=== PATIENT | male | born 1950 | race Caucasian/White ===

== ENCOUNTER → 2018-11-12 | Outpatient (CLI) | payer BC, OTHER ==
[~2018-11-12] VITALS: Ht 175.3 cm; Wt 90.7 kg
[~2018-11-12] MED LIST: IBUPROFEN 200200 M1 PO; MOBIC7.5 MG PO; NABUMETONE 500500 M1 PO; PREDNISONE 20 M20 MG PO
[2018-11-12 13:53] VITALS: BP 115/69
--- NOTE | 2018-11-12 14:18 | NUR ---
Pain Clinic Assessment: 1. History of Osteoarthritis: Not Applicable History of Rheumatoid Arthritis: Not Applicable 2. Height: 5 ft. 9 in. 175.3 cm. Weight: 200.0 lb. oz. 90.720 kg. Patient's BMI: 29.5 3. Vital Signs: BP: 115/69 Pulse: 68 Resp: 16 Temp: 02 Sat: 97 ECG Mon: 4. Pain Intensity: 6 5. Fall Risk: Dizziness: N Needs help standing or walking: N Fallen in the last 3 months: N Fall risk comments: 6. Patient on Blood Thinner: None 7. History of Hypertension: N 8. Opioid Therapy greater than 6 weeks: N Opiate Contract Signed: 9. Risk Assessment Tool Provided: low-0 10. Functional Assessment Tool: 11. Recreational Drug Use: Past greater than 3 mos Drug Type: Tobacco Use: Former Smoker Tobacco Type: Amount or Packs/day: How Many Years: Alcohol Use: No Frequency: Quant:
--- NOTE | 2018-11-19 07:42 | HPC ---
[facility] [address] [place] [address] PAIN MANAGEMENT CONSULTATION Name: JAMESCONSTANTINO Brit [id number] Admission: 11/12/18 ������������������ Attend Phys: Harsha Antonio DO Discharge: ������������������ Date of : 54 Report #: [id number] THIS REPORT FOR: //name// CC: Dr. Cano [facility] physician/PCP Harsha Antonio DATE OF SERVICE: 11/12/2018 CHIEF COMPLAINT: Neck pain, left upper extremity pain with paresthesias. HISTORY OF PRESENT ILLNESS: As you know, the patient is a 68-year-old male who reports acute onset of neck pain, left upper extremity pain and paresthesias that began on 08/25/2018. He has been evaluated not only by his primary care physician, but has sought evaluation through Orthopedic Surgery in regards to his left neck and shoulder pain. He has been advised that his symptoms are likely related to his cervical pathology. He was given a diagnosis of impingement syndrome of the left shoulder, though this does not appear to be the distribution of pain based on his current descriptors. Due to lack of improvement with conservative treatment option, the patient was sent to our clinic for evaluation. The patient has trialled a Medrol Dosepak, which did provide benefit only transiently while on the medication. At discontinuation, his pain returned. He has been referred to our clinic to discuss treatment options for suspected cervical radiculopathy secondary to severe neural foraminal stenosis. The patient indicates today pain is continuous, steady and constant, describes the pain as aching, sharp, stabbing, numbness and tingling. Places current pain score 6/10, daily average at 7/10, worst pain has been as 10/10. The patient states pain is exacerbated with sitting in certain positions, trying to sleep or utilizing his left upper extremity, improves with standing up and repositioning, rest and the Medrol Dosepak. He has been referred to our service to discuss treatment options for suspected cervical radiculopathy. PAST MEDICAL HISTORY: None. PAST SURGICAL HISTORY: ORIF of the tibia in 05/2003. SOCIAL HISTORY: The patient denies tobacco, alcohol, IV or illicit drug use. 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 He is working, not receiving workmen's compensation nor is trying to obtain disability benefits. He is unaccompanied today. He is not in litigation in regards to pain. REVIEW OF SYSTEMS: Positive for wearing corrective eyewear, left upper extremity numbness and tingling sensations, neck pain, insomnia. All other review of systems negative per 12-point review of systems other than those [address] [address] PAIN MANAGEMENT CONSULTATION Name: CONSTANTINO JAMES Room #: REG [facility]#: [id number] Admission: 11/12/18 ������������������ Attend Phys: Harsha Antonio DO Discharge: ������������������ Date of : 54 Report #: [id number] listed in history of present illness. Pain impact score 25/70 indicating moderate interference of daily activities secondary to pain. ALLERGIES: No known drug allergies. CURRENT MEDICATIONS: Meloxicam 7.5 mg once a day, ibuprofen 200 mg every 6 hours p.r.n. for pain. IMAGING: MRI cervical spine obtained 10/26/2018 shows C1-C2 unremarkable. C2-C3 unremarkable. C3-C4, mild disk bulge, mild foraminal stenosis. C4-C5, mild disk osteophyte bulge, mild foraminal stenosis. C5-C6, mild disk osteophyte bulge, moderate foraminal stenosis. C6-C7, moderate to severe foraminal stenosis, mild compression of the thecal sac which measures 8 mm AP diameter. C7-T1 mild disk bulge, mild foraminal stenosis. T1-T2 osteophytic bulge with left moderate foraminal stenosis. PHYSICAL EXAMINATION: VITAL SIGNS: Blood pressure 115/69, pulse is 68, respiratory rate 16 and unlabored. The patient is 97% on room air. Height 5 feet 9 inches tall, weight 200 pounds, BMI calculated 29.5. GENERAL: Well-developed, well-nourished, well-hydrated 68-year-old male appearing stated age, placing pain around 6/10. HEENT: Normocephalic, atraumatic. Pupils equal, round, reactive to light. Extraocular muscles are intact. Sclerae nonicteric without injection. NEUROLOGIC: Cranial nerves 2-12 grossly intact. Speech is fluent. LUNGS: Clear. No wheezes, rhonchi or rales. CARDIOVASCULAR: Regular. No appreciable gallop, no rub. ABDOMEN: Soft, mildly obese, normoactive bowel sounds. EXTREMITIES: Show no clubbing, no cyanosis, and no edema. MUSCULOSKELETAL: Upper extremity strength appears equal and symmetrical 5/5, intact to light touch from C5-T1 dermatomes. Deep tendinous reflexes equal, symmetrical at biceps, brachialis and triceps. Spurling's test positive left, negative right. Cervical provocation testing is met with increasing pain with lateral flexion and rotation to the left. No extension issues. Mild restriction of motion to the left lateral and left rotational component of the cervical region. ASSESSMENT: 1. Cervical radiculopathy. 2. Foraminal stenosis of the cervical spine. 3. Cervical spinal stenosis with radiculopathy. 4. Cervical degeneration. 5. Intractable pain. [address] [address] PAIN MANAGEMENT CONSULTATION Name: CONSTANTINO JAMES Room #: REG [facility]#: [id number] Admission: 11/12/18 ������������������ Attend Phys: Harsha Antonio DO Discharge: ������������������ Date of : 54 Report #: [id number] PLAN: 1. The patient has been referred to our service to discuss treatment options for suspected cervical radiculopathy. The distribution of symptom do correlate with the neural foraminal stenosis findings at the C6-C7 level. We discussed at length today the treatment options available for a C6-C7 distribution of a cervical radiculopathy. The following was discussed with the patient for treatment options. We discussed physical therapy, stretching exercises and traction techniques. Given the fact the patient has neural foraminal stenosis, traction will be an excellent option of treatment as it will decrease the compressive forces upon the nerve roots. 1. We also discussed today treatment options including medication management with neuropathic pain medications and a consistent nonsteroidal anti-inflammatory. We discussed cervical epidural injections for which the patient was referred to our clinic and ultimately surgical options to decompress the foramen at the C6-C7 level. After reviewing the risks and benefits of all the proposed treatment options, the patient chose to move forward with cervical epidural injection under fluoroscopic guidance. The patient was advised that third libertarian payer restrictions require that authorization be obtained before the patient could undergo a cervical epidural injection. We will obtain this authorization over the next 24 hours and have the patient return tomorrow to undergo the first in a series of cervical epidural injections to address cervical radiculopathy. 2. The patient will be started on nabumetone 500 mg dose 1 tab p.o. t.i.d. with meals. I have given the patient #90 tablets, advised the patient to discontinue all other nonsteroidal anti-inflammatories in favor of this medication. He will watch for dyspepsia, worsening blood pressure, lower extremity edema. If he notes any side effects, discontinue immediately, call for further instructions. 3. We will see the patient back tomorrow morning assuming we can gain authorization for the patient to undergo a cervical epidural injection under fluoroscopic guidance. We will keep you apprised of his response to this treatment. 4. We wish to thank Dr. Cano for the referral of the patient to our clinic. We will keep you informed of how the patient responds to treatment options for cervical radiculopathy. Once he has completed his treatment, we will be returning his care to your capable hands. Again, we wish to thank you for the opportunity to see this patient in consultation. ��������������������������������������������� <ELECTRONICALLY SIGNED> ���������������������������������������� By: Harsha Antonio DO ��������������������������������������������� 11/19/18 [id number] Harsha Antonio DO /nt
== END ==
LOC: PAIN 07:07
DX: M50.11 Cervical disc disorder with radiculopathy, high cervical region (principal); M48.02 Spinal stenosis, cervical region; G89.4 Chronic pain syndrome

== ENCOUNTER → 2018-11-13 | Outpatient (CLI) | payer BC, OTHER ==
[~2018-11-13] VITALS: Ht 175.3 cm; Wt 90.7 kg
--- NOTE | ~2018-11-13 | HPC ---
[address] [place] [address] PAIN MANAGEMENT CONSULTATION Name: CONSTANTINO JAMES Brit Room #: REG [facility]#: [id number] Admission: 11/13/18 ������������������ Attend Phys: Harsha Antonio DO Discharge: ������������������ Date of : 54 Report #: [id number] THIS REPORT FOR: //name// CC: Dr. Cano [facility] physician/PCP Harsha Antonio DATE OF SERVICE: 11/13/2018 CHIEF COMPLAINT: Neck pain, left upper extremity pain with paresthesias. HISTORY OF PRESENT ILLNESS: As you know, the patient is a 68-year-old male who was seen yesterday at our clinic on 11/12/2018 for suspected cervical radiculopathy. The patient was established at today's appointment to undergo cervical epidural injection under fluoroscopic guidance to address cervical radicular symptoms. We have gained authorization for the patient to undergo the procedure today. He returns today in followup visit reporting pain score 4/10, states pain is constant, aching, sharp, stabbing in sensation, exacerbated with sitting and sleeping, improves with standing, rest and repositioning. He returns today to undergo first in a series of cervical epidural injections. ALLERGIES: No known drug allergies. CURRENT MEDICATIONS: Nabumetone 500 mg 3 times a day. SOCIAL HISTORY: The patient denies tobacco, alcohol, IV or illicit drug use. He is working, not receiving workmen's compensation, unaccompanied today. IMAGING: No new imaging available. PHYSICAL EXAMINATION: VITAL SIGNS: Blood pressure 109/68, pulse 74, respiratory rate 16 and unlabored, the patient is 96% on room air. Height 5 feet 9 inches tall, weight 200 pounds, BMI calculated 29.5. GENERAL: Well-developed, well-nourished, well-hydrated 68-year-old male appearing stated age, placing current pain score at 4/10. HEENT: Normocephalic, atraumatic. Pupils equal, round, reactive to light. EXTREMITIES: Show no clubbing, no cyanosis, no edema. MUSCULOSKELETAL: Upper extremity strength appears symmetrical 5/5. Slight giveaway strength noted with biceps flexion on the left due to pain generation and numbness. Otherwise, equal and symmetrical. Deep tendon reflexes symmetrical biceps, brachialis, triceps. Spurling's test positive left. ASSESSMENT: 1. Cervical radiculopathy. 2. Neural foraminal stenosis of the cervical spine. [address] [address] PAIN MANAGEMENT CONSULTATION Name: JACOBCONSTANTINO Brit Room #: REG CLI [facility]#: [id number] Admission: 11/13/18 ������������������ Attend Phys: Harsha Antonio DO Discharge: ������������������ Date of : 54 Report #: [id number] 3. Cervical spondylosis with radiculopathy. 4. Chronic intractable pain. PLAN: 1. The patient returns today in followup visit to undergo the first in a series of cervical epidural injections under fluoroscopic guidance. The patient has been advised the risks and benefits of this procedure. These risks include but are not necessarily limited to bleeding, bruising, infection, worsening pain, no relief of pain, also risk of temporary or permanent muscle weakness, temporary or permanent nerve damage, possible paralysis, post-dural puncture headache and . The patient states understood and wished to proceed. 2. No medication changes made at today's visit. 3. We will see the patient back in followup visit in 31 days. At that time, we will discuss the efficacy of today's cervical epidural injection and determine if next in the series of cervical epidural injections would be recommended. PROCEDURE NOTE: DESCRIPTION OF PROCEDURE: C7-T1 cervical epidural steroid injection under fluoroscopic guidance. This is the first procedure of the first series that the patient is undergoing. After obtaining written consent, the patient was taken back to the fluoroscopy suite and placed in a prone position with separate pillows under chest and forehead to decrease cervical lordosis. The skin overlying the cervical area was prepped and draped in an aseptic fashion. The C7-T1 vertebral interspace was identified by AP fluoroscopy. The skin and subcutaneous tissue overlying the target site of injection was anesthetized using 3 mL of 1% lidocaine. A 20 gauge 3-1/2 inch Tuohy needle was advanced under fluoroscopic guidance toward the epidural space using a midline approach. The epidural space was identified using a loss of resistance to air technique. After negative aspiration for heme or cerebrospinal fluid, a total of 1 mL of Omnipaque was injected. A cervical epidurogram was confirmed using AP and oblique fluoroscopy. After negative aspiration for heme or cerebrospinal fluid, 5 mL of a solution containing 2 mL 40 mg per mL, 80 mg total triamcinolone, 3 mL of lidocaine 1%, was injected in increments. Contrast spread was noted from posterior epidural space. The needle was then retracted approximately custodial and the needle track was flushed with 1 mL of 1% lidocaine. There were no apparent new sensory deficits in the upper extremities present following the procedure. A sterile bandage was placed over the injection site. The heart rate, pulse oximetry and blood pressure were continuously monitored after the procedure. There were no apparent complications. The patient tolerated the procedure well and was carefully escorted in the recovery room in [address] [address] PAIN MANAGEMENT CONSULTATION Name: CONSTANTINO JAMES Room #: REG CLI [facility]#: [id number] Admission: 11/13/18 ������������������ Attend Phys: Harsha Antonio DO Discharge: ������������������ Date of : 54 Report #: [id number] stable condition. After meeting discharge criteria, the patient was discharged home. ��������������������������������������������� ���������������������������������������� By: ��������������������������������������������� [id number] Harsha Antonio DO /nt
[2018-11-13 08:06] VITALS: BP 109/68
--- NOTE | 2018-11-13 08:12 | NUR ---
Pain Clinic Assessment: 1. History of Osteoarthritis: Not Applicable History of Rheumatoid Arthritis: Not Applicable 2. Height: 5 ft. 9 in. 175.3 cm. Weight: 200.0 lb. oz. 90.720 kg. Patient's BMI: 29.5 3. Vital Signs: BP: 109/68 Pulse: 74 Resp: 16 Temp: 02 Sat: 96 ECG Mon: 4. Pain Intensity: 4 5. Fall Risk: Dizziness: N Needs help standing or walking: N Fallen in the last 3 months: N Fall risk comments: 6. Patient on Blood Thinner: None 7. History of Hypertension: N 8. Opioid Therapy greater than 6 weeks: N Opiate Contract Signed: 9. Risk Assessment Tool Provided: low-0 10. Functional Assessment Tool: 11. Recreational Drug Use: Past greater than 3 mos Drug Type: Tobacco Use: Former Smoker Tobacco Type: Amount or Packs/day: How Many Years: Alcohol Use: No Frequency: Quant:
== END | disposition home or self-care (01) ==
LOC: PAIN 07:02
DX: M47.22 Other spondylosis with radiculopathy, cervical region (principal); M48.02 Spinal stenosis, cervical region; G89.29 Other chronic pain; Z87.891 Personal history of nicotine dependence